=== PATIENT | female | born 1990 | race Caucasian/White ===

== ENCOUNTER 2016-09-12 17:48 | Emergency (ER) | payer OTHER ==
[~2016-09-12] VITALS: Ht 172.7 cm; Wt 66.2 kg
[2016-09-12] MEDS ORDERED: ONDANSETRON PF 4 MG/2 ML VIAL. IV ONE (19:00)
[2016-09-12] MEDS ORDERED: IV NORMAL SALINE 1000ML BAG 1,000 ML IV SCH (19:00)
[2016-09-12 19:29] LABS: BASO # 0.1 x10^3/uL (0.0-0.2); BASO % 1 % (0-3); EOS % 1 % (0-3); HEMATOCRIT 42.6 % (36.0-47.0); HEMOGLOBIN 14.3 g/dL (12.0-15.5); LYMPH # 2.1 x10^3/uL (1.0-4.8); LYMPH % 28 % (24-48); MEAN CORPUSCULAR HEMOGLOBIN 30 pg (25-35); MEAN CORPUSCULAR HGB CONC 34 g/dL (31-37); MEAN CORPUSCULAR VOLUME 88 fL (79-100); MONO % 9 % (0-9); NEUT % 61 % (31-73); PLATELET COUNT 238 x10^3/uL (140-400); RED BLOOD COUNT 4.81 x10^6/uL (3.50-5.40); RED CELL DISTRIBUTION WIDTH 12.7 % (11.5-14.5); WHITE BLOOD COUNT 7.5 x10^3/uL (4.0-11.0)
[2016-09-12 19:39] LABS: CALCIUM 9.1 mg/dL (8.5-10.1); CREATININE 0.7 mg/dL (0.6-1.0); GFR 103.7; POTASSIUM 3.9 mmol/L (3.5-5.1)
[2016-09-12 19:40] VITALS: BP 114/80
[2016-09-12 19:45] LABS: ALBUMIN 3.7 g/dL (3.4-5.0); ALBUMIN/GLOBULIN RATIO 0.9 (1.0-1.7); TOTAL BILIRUBIN 0.2 mg/dL (0.2-1.0); TOTAL PROTEIN 7.8 g/dL (6.4-8.2)
[2016-09-12] MEDS ORDERED: IOHEXOL 300 MG/ML 75 ML VIAL IV ONE (19:45)
[2016-09-12 19:51] LABS: NEG OBC FOB NEG; POS OBC FOB POS
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
[2016-09-12] MEDS ORDERED: MORPHINE SULFATE 2 MG/ML DISP.SYRIN. IV ONE (20:30)
[2016-09-12 20:31] LABS: BILIRUBIN,URINE NEGATIVE (NEG); GLUCOSE,URINE NEGATIVE (NEG); NITRITE,URINE NEGATIVE (NEG); PROTEIN,URINE NEGATIVE (NEG-TRACE); UROBILINOGEN,URINE 0.2 mg/dL (0.2 mg/dL)
[2016-09-12 20:42] LABS: BACTERIA,URINE 0 /HPF (0-FEW); RBC,URINE >40 /HPF (0-2); SQUAMOUS EPITHELIAL CELL,UR FEW /LPF; WBC,URINE OCC /HPF (0-4)
--- NOTE | 2016-09-12 20:42 | RAD ---
CT abdomen and pelvis with contrast Indication: Rectal bleeding and abdominal cramping. Axial imaging through the abdomen and pelvis was performed after the administration of intravenous contrast. The lung bases are clear. The liver and gallbladder are unremarkable. The pancreas and spleen are unremarkable. No adrenal mass is detected. The kidneys are unremarkable. The small and large bowel loops are non dilated. There is no ascites. No free air is seen. The bladder is decompressed. The uterus is unremarkable. No inflammatory process is identified. Impression: No acute features detected. Electronically signed by: Landon Carrera MD (Sep 12, 2016 20:41:24)
[2016-09-12] MEDS ORDERED: ONDA4TAB10 SL (21:00)
== END 2016-09-12 21:10 | disposition home or self-care (01) ==
LOC: ER 17:48
DX: K62.5 Hemorrhage of anus and rectum (principal); R10.33 Periumbilical pain; R10.13 Epigastric pain; K64.4 Residual hemorrhoidal skin tags; F41.9 Anxiety disorder, unspecified; F32.9 Major depressive disorder, single episode, unspecified; G89.29 Other chronic pain; I49.5 Sick sinus syndrome; Z88.8 Allergy status to other drugs, medicaments and biological substances
CPT/HCPCS: 36415; 74177; 80053; 81001; 81025; 82274; 83690; 85027; 96361; 96374; 96375; 99285; J2270; J2405; J7030; Q9967

== ENCOUNTER 2016-11-29 03:52 | Emergency (ER) | payer OTHER ==
[~2016-11-29] VITALS: Ht 167.6 cm; Wt 66.2 kg
[~2016-11-29 03:52] MED LIST: ONDA4TAB10 SL
[2016-11-29 04:28] LABS: BASO # 0.1 x10^3/uL (0.0-0.2); BASO % 1 % (0-3); EOS % 2 % (0-3); HEMATOCRIT 44.3 % (36.0-47.0); HEMOGLOBIN 15.2 g/dL (12.0-15.5); LYMPH # 4.2 x10^3/uL (1.0-4.8); LYMPH % 41 % (24-48); MEAN CORPUSCULAR HEMOGLOBIN 30 pg (25-35); MEAN CORPUSCULAR HGB CONC 34 g/dL (31-37); MEAN CORPUSCULAR VOLUME 87 fL (79-100); MONO % 8 % (0-9); NEUT % 49 % (31-73); PLATELET COUNT 278 x10^3/uL (140-400); RED BLOOD COUNT 5.08 x10^6/uL (3.50-5.40); RED CELL DISTRIBUTION WIDTH 12.8 % (11.5-14.5); WHITE BLOOD COUNT 10.2 x10^3/uL (4.0-11.0)
[2016-11-29] MEDS ORDERED: CONTRAST GIVEN MC PRN (04:30)
[2016-11-29 04:31] LABS: POTASSIUM ISTAT 3.3 mmol/L (3.5-5.0)
[2016-11-29 04:40] LABS: PROTHROMBIN TIME PATIENT 12.2 SEC (11.7-14.0)
[2016-11-29 04:43] LABS: CALCIUM 8.9 mg/dL (8.5-10.1); CREATININE 0.8 mg/dL (0.6-1.0); GFR 88.1; POTASSIUM 3.3 mmol/L (3.5-5.1)
[2016-11-29 04:50] LABS: ALBUMIN 3.6 g/dL (3.4-5.0); ALBUMIN/GLOBULIN RATIO 0.8 (1.0-1.7); TOTAL BILIRUBIN 0.4 mg/dL (0.2-1.0)
[2016-11-29] MEDS ORDERED: HYDROmorphone 2 MG/ML VIAL IV ONE (05:00)
[2016-11-29] MEDS ORDERED: IOHEXOL 300 MG/ML 75 ML VIAL IV ONE (05:00)
[2016-11-29] MEDS ORDERED: IV NORMAL SALINE 1000ML BAG 1,000 ML IV ONE (05:00)
[2016-11-29] MEDS ORDERED: ONDANSETRON PF 4 MG/2 ML VIAL. IV ONE (05:00)
--- NOTE | 2016-11-29 05:42 | RAD ---
INDICATION: Chest pain. COMPARISON: None TECHNIQUE: Axial CT images obtained through the chest. Intravenous contrast was utilized. 3D images processed per protocol. One or more of the following individualized dose reduction techniques were utilized for this examination: 1. Automated exposure control; 2. Adjustment of the mA and/or kV according to patient size; 3. Use of iterative reconstruction technique. FINDINGS: No focal airspace consolidation. No pneumothorax. No pulmonary edema. Thoracic aorta not grossly aneurysmal. No gross osseous destructive lesion. No central pulmonary embolus. The ascending thoracic aorta is largely obscured by motion. 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 IMPRESSION: No focal airspace consolidation, pneumothorax or pulmonary edema. No central pulmonary embolus. Electronically signed by: Adelso Chanel (November 29, 2016 05:41:14)
[2016-11-29] MEDS ORDERED: HYDR-971 PO (06:03)
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
--- NOTE | 2016-11-29 06:22 | EKG ---
[facility] [address] [place] [address] Test Date: 2016-11-29 Test Time: 03:57:59 Pat Name: ELROY [place] Department: Room: Gender: F [employer] Teacher: : 1990 Requested By: TALA BEDOYA Order Number: [id number] Reading MD: Robbin Sotelo Measurements Intervals [place] Rate: 91 P: 48 [place]: 120 QRS: 69 QRSD: 76 T: 40 QT: 340 QTc: 425 Interpretive Statements SINUS RHYTHM Electronically Signed On 11-29-2016 9:12:34 CDT by Robbin Sotelo
[2016-11-29 06:29] VITALS: BP 101/63
== END 2016-11-29 06:52 | disposition home or self-care (01) ==
LOC: ER 03:52
DX: R07.89 Other chest pain (principal); F41.0 Panic disorder [episodic paroxysmal anxiety]; R05 Cough; F41.9 Anxiety disorder, unspecified; G89.29 Other chronic pain; M32.9 Systemic lupus erythematosus, unspecified; F32.9 Major depressive disorder, single episode, unspecified; Z88.8 Allergy status to other drugs, medicaments and biological substances
CPT/HCPCS: 36415; 71275; 80047; 80053; 83690; 84484; 85027; 85379; 85610; 93005; 96361; 96374; 96375; 99285; J1170; J2405; J7030; Q9967

== ENCOUNTER 2017-02-06 17:32 | Emergency (ER) | payer OTHER ==
[~2017-02-06] VITALS: Ht 175.3 cm; Wt 65.3 kg
[~2017-02-06 17:32] MED LIST changes: +HYDR-971 PO
--- NOTE | 2017-02-06 18:26 | PHYS DOC ---
Past Medical History Past Medical History: Anxiety, Depression, Other Additional Past Medical Histor: LUPUS, POSTURAL ORTHO TACHY, PTSD, CHRONIC UTI , OVARIAN CYSTS Past Surgical History: No Surgical History Alcohol Use: None Drug Use: None Adult General Chief Complaint Chief Complaint: WOUND CHECK [facility] HPI Patient is a 26 year old female presents emergency department stating that she had a burn to her right forearm. She states that she has a history of pots and lupus. She does expect to have delayed healing. She states she's been cleaning the site with hydrogen peroxide. She states today she became nauseated and just not feeling really well. She denies any fever, chills she does state she's nauseated however has not vomited. Patient denies any drainage or discharge coming from the site. She states that it feels warm and is swollen. Review of Systems Review of Systems Constitutional: Denies fever or chills [] Eyes: Denies change in visual acuity, redness, or eye pain [] HENT: Denies nasal congestion or sore throat [] Respiratory: Denies cough or shortness of breath [] Cardiovascular: No additional information not addressed in HPI [] GI: Denies abdominal pain, nausea, bloody stools or diarrhea. Complaint of nausea : Denies dysuria or hematuria [] Musculoskeletal: Denies back pain or joint pain [] Integument: Denies rash or skin lesions. Abrasion right forearm Neurologic: Denies headache, focal weakness or sensory changes [] Endocrine: Denies polyuria or polydipsia [] Current Medications Current Medications Current Medications Medications (Trade) Dose Ordered Sig/[facility] Start Time Stop Time Status Last Admin Dose Admin Acetaminophen (Tylenol) 650 mg 1X ONCE 02/06/17 19:30 02/06/17 19:31 DC 02/06/17 19:16 650 MG Cyclobenzaprine HCl (Flexeril) 10 mg 1X ONCE 02/06/17 20:00 02/06/17 20:01 DC 02/06/17 19:59 10 MG Ondansetron HCl (Zofran Odt) 4 mg 1X ONCE 02/06/17 18:45 02/06/17 18:46 DC 02/06/17 18:34 4 MG Allergies Allergies Allergies Coded Allergies Type Severity Reaction Last Updated Verified metoclopramide Allergy Intermediate Anxiety 09/12/16 Yes Corticosteroids (Glucocorticoids) Adverse Reaction Intermediate 11/29/16 Yes Physical Exam Physical Exam Constitutional: Well developed, well nourished, no acute distress, non-toxic appearance. [] HENT: Normocephalic, atraumatic, bilateral external ears normal, oropharynx moist, no oral exudates, nose normal. [] Eyes: PERRLA, EOMI, conjunctiva normal, no discharge. [] Neck: Normal range of motion, no tenderness, supple, no stridor. [] Cardiovascular:Heart rate regular rhythm, no murmur [] Lungs & Thorax: Bilateral breath sounds clear to auscultation [] Abdomen: Bowel sounds hypoactive, soft, no tenderness, no masses, no pulsatile masses. [] Skin: Warm, dry, no erythema, no rash. Patient with an abrasion noted to the right forearm the area does have redness noted around the area however no drainage or discharge noted eye do not appreciate any warmth noticed around the wound. Back: No tenderness Extremities: No tenderness, no cyanosis, no clubbing, ROM intact, no edema. [] Neurologic: Alert and oriented X 3, normal motor function, normal sensory function, no focal deficits noted. [] Psychologic: Affect normal, judgement normal, mood normal. [] Current Patient Data Vital Signs Vital Signs Date Time Temp Pulse Resp B/P (MAP) Pulse Ox O2 Delivery O2 Flow Rate FiO2 02/06/17 18:59 98.5 125 124/79 (94) 100 98.5 02/06/17 17:39 18 Room Air Lab Values Laboratory Tests Test 02/06/17 19:46 White Blood Count 11.1 x10^3/uL (4.0-11.0) H Red Blood Count 4.63 x10^6/uL (3.50-5.40) Hemoglobin 13.8 g/dL (12.0-15.5) Hematocrit 41.0 % (36.0-47.0) Mean Corpuscular Volume 89 fL (79-100) Mean Corpuscular Hemoglobin 30 pg (25-35) Mean Corpuscular Hemoglobin Concent 34 g/dL (31-37) Red Cell Distribution Width 12.9 % (11.5-14.5) Platelet Count 283 x10^3/uL (140-400) Neutrophils (%) (Auto) 59 % (31-73) Lymphocytes (%) (Auto) 32 % (24-48) Monocytes (%) (Auto) 8 % (0-9) Eosinophils (%) (Auto) 1 % (0-3) Basophils (%) (Auto) 1 % (0-3) Neutrophils # (Auto) 6.5 x10^3uL (1.8-7.7) Lymphocytes # (Auto) 3.6 x10^3/uL (1.0-4.8) Monocytes # (Auto) 0.9 x10^3/uL (0.0-1.1) Eosinophils # (Auto) 0.1 x10^3/uL (0.0-0.7) Basophils # (Auto) 0.1 x10^3/uL (0.0-0.2) Laboratory Tests 02/06/17 19:46 EKG EKG [] Radiology/Procedures Radiology/Procedures [] Course & Med Decision Making Course & Med Decision Making Pertinent Labs and Imaging studies reviewed. (See chart for details) Patient will be provided with Zofran here in the emergency department. She'll be provided with by mouth challenge. Patient had complained that she was having muscle spasms all over. She states that she has Flexeril at home in which she can take at home. She states that she really just does not feel right and feels as though she is not inability to tolerate going home. Spoke with patient regards to admission here into the hospital for observation status. Patient was provided with a Flexeril here in the emergency department. She was reevaluated in which she states she feels much better and feels that she can go home and does not want to be admitted into the hospital. Patient's CBC with a slightly elevated white count. She'll be provided with Keflex at discharge for potential infection of the wound. Patient agrees with discharge instructions treatment regimens and follow-up recommendations. Signs symptoms to return back to emergency department as been provided. [] Dragon Disclaimer Dragon Disclaimer This electronic medical record was generated, in whole or in part, using a voice recognition dictation system. Departure Departure Impression: Primary Impression: Abrasion of right forearm Disposition: HOME, SELF-CARE Condition: STABLE Referrals: GEORGE COHN DO (PCP) Patient Instructions: Abrasion, [id number] Additional Instructions: Activity as tolerated. Medication as prescribed. Tylenol or ibuprofen for fever chills or generalized body aches and discomfort. Continue to take her Flexeril which she state at home for your muscle spasms and discomfort. Drink plenty of fluids. Follow-up to primary care physician in the next 3-5 days. Scripts Cephalexin (KEFLEX) 500 Mg Capsule 1 CAP PO BID, #20 CAP Prov: ALFREDO MENDEZ APRN 02/06/17 ALFREDO MENDEZ APRN Feb 06, 2017 18:26
[2017-02-06] MEDS ORDERED: ONDANSETRON ODT 4 MG TAB.RAPDIS. PO ONE (18:45)
[2017-02-06 18:59] VITALS: BP 124/79
[2017-02-06] MEDS ORDERED: ACETAMINOPHEN 325 MG TABLET. PO ONE (19:30)
[2017-02-06] MEDS ORDERED: CYCLOBENZAPRINE 10 MG TABLET. PO ONE (20:00)
[2017-02-06 20:04] LABS: BASO # 0.1 x10^3/uL (0.0-0.2); BASO % 1 % (0-3); EOS % 1 % (0-3); HEMOGLOBIN 13.8 g/dL (12.0-15.5); LYMPH # 3.6 x10^3/uL (1.0-4.8); LYMPH % 32 % (24-48); MEAN CORPUSCULAR HEMOGLOBIN 30 pg (25-35); MEAN CORPUSCULAR HGB CONC 34 g/dL (31-37); MEAN CORPUSCULAR VOLUME 89 fL (79-100); MONO % 8 % (0-9); NEUT % 59 % (31-73); PLATELET COUNT 283 x10^3/uL (140-400); RED BLOOD COUNT 4.63 x10^6/uL (3.50-5.40); RED CELL DISTRIBUTION WIDTH 12.9 % (11.5-14.5); WHITE BLOOD COUNT 11.1 x10^3/uL (4.0-11.0)
[2017-02-06] MEDS ORDERED: CEPH-264 PO (20:17)
[2017-02-06 20:18] LABS: CALCIUM 8.7 mg/dL (8.5-10.1); CREATININE 0.8 mg/dL (0.6-1.0); GFR 88.1
[2017-02-06 20:24] LABS: ALBUMIN 3.8 g/dL (3.4-5.0); TOTAL BILIRUBIN 0.2 mg/dL (0.2-1.0); TOTAL PROTEIN 7.6 g/dL (6.4-8.2)
== END 2017-02-06 20:51 | disposition home or self-care (01) ==
LOC: ER 17:32
DX: S50.811A Abrasion of right forearm, initial encounter (principal); L93.0 Discoid lupus erythematosus; Z87.440 Personal history of urinary (tract) infections; N83.209 Unspecified ovarian cyst, unspecified side; X58.XXXA Exposure to other specified factors, initial encounter; Y93.89 Activity, other specified; Y99.8 Other external cause status; Y92.89 Other specified places as the place of occurrence of the external cause
CPT/HCPCS: 36415; 80053; 85027; 99284; Q0162

== ENCOUNTER 2017-03-14 17:31 | Emergency (ER) | payer OTHER ==
[~2017-03-14] VITALS: Ht 175.3 cm; Wt 63.5 kg
[~2017-03-14 17:31] MED LIST changes: +CEPH-264 PO
[2017-03-14 17:35] VITALS: BP 111/74
--- NOTE | 2017-03-14 17:44 | PHYS DOC ---
Past Medical History Past Medical History: Anxiety, Depression, Other Additional Past Medical Histor: LUPUS, POSTURAL ORTHO TACHY, PTSD, CHRONIC UTI , OVARIAN CYSTS Past Surgical History: No Surgical History Alcohol Use: None Drug Use: None Adult General Chief Complaint Chief Complaint: TOE PROBLEM HPI HPI Patient is a 26 year old female presents to the emergency department with concerns about her toenails. She states that they have been flaking off . She has not,, no pain, no redness or swelling. Review of Systems Review of Systems Constitutional: Denies fever or chills [] Eyes: Denies change in visual acuity, redness, or eye pain [] HENT: Denies nasal congestion or sore throat [] Respiratory: Denies cough or shortness of breath [] Cardiovascular: No additional information not addressed in HPI [] GI: Denies abdominal pain, nausea, vomiting, bloody stools or diarrhea [] : Denies dysuria or hematuria [] Musculoskeletal: Denies back pain or joint pain [] Integument: Denies rash or skin lesions [] Neurologic: Denies headache, focal weakness or sensory changes [] Endocrine: Denies polyuria or polydipsia [] Allergies Allergies Allergies Coded Allergies Type Severity Reaction Last Updated Verified metoclopramide Allergy Intermediate Anxiety 09/12/16 Yes Corticosteroids (Glucocorticoids) Adverse Reaction Intermediate 11/29/16 Yes Physical Exam Physical Exam Constitutional: Well developed, well nourished, no acute distress, non-toxic appearance. [] HENT: Normocephalic, atraumatic, bilateral external ears normal, oropharynx moist, no oral exudates, nose normal. [] Eyes: PERRLA, EOMI, conjunctiva normal, no discharge. [] Neck: Normal range of motion, no tenderness, supple, no stridor. [] Cardiovascular:Heart rate regular rhythm, no murmur [] Lungs & Thorax: Bilateral breath sounds clear to auscultation [] Abdomen: Bowel sounds normal, soft, no tenderness, no masses, no pulsatile masses. [] Skin: Warm, dry, no erythema, no rash, nail exam unremarkable [] Back: No tenderness, no CVA tenderness. [] Extremities: No tenderness, no cyanosis, no clubbing, ROM intact, no edema. [] Neurologic: Alert and oriented X 3, normal motor function, normal sensory function, no focal deficits noted. [] Psychologic: Affect normal, judgement normal, mood normal. [] EKG EKG [] Radiology/Procedures Radiology/Procedures [] Course & Med Decision Making Course & Med Decision Making Pertinent Labs and Imaging studies reviewed. (See chart for details) [] Dragon Disclaimer Dragon Disclaimer This electronic medical record was generated, in whole or in part, using a voice recognition dictation system. Departure Departure Impression: Primary Impression: Feared complaint without diagnosis Disposition: HOME, SELF-CARE Condition: STABLE Referrals: GEORGE COHN DO (PCP) LIS PEARCE APRN Mar 14, 2017 17:44
== END 2017-03-14 17:55 | disposition home or self-care (01) ==
LOC: ER 17:31
DX: Z71.1 Person with feared health complaint in whom no diagnosis is made (principal); F41.9 Anxiety disorder, unspecified; F32.9 Major depressive disorder, single episode, unspecified; L93.0 Discoid lupus erythematosus; F43.10 Post-traumatic stress disorder, unspecified; Z88.8 Allergy status to other drugs, medicaments and biological substances
CPT/HCPCS: 99281

== ENCOUNTER 2017-06-15 15:26 | Emergency (ER) | payer OTHER ==
[~2017-06-15] VITALS: Ht 175.3 cm; Wt 65.8 kg
--- NOTE | 2017-06-15 16:34 | PHYS DOC ---
Past Medical History Past Medical History: Anxiety, Depression, Other Additional Past Medical Histor: LUPUS, POSTURAL ORTHO TACHY, PTSD, CHRONIC UTI , OVARIAN CYSTS Past Surgical History: No Surgical History Alcohol Use: None Drug Use: None Adult General Chief Complaint Chief Complaint: HIP PAIN HPI HPI Patient is a 26 year old female with a history of anxiety and depression who presents today complaining of a possible left hip dislocation. Patient states she has a connective tissue disorder that results to frequent hip dislocations. Patient states today she felt her left hip was out and she put it back in but she doesn't feel it's in place. Review of Systems Review of Systems Constitutional: Denies fever or chills [] Musculoskeletal: Left hip possible dislocation Integument: Denies rash or skin lesions [] Neurologic: Denies headache, focal weakness or sensory changes [] All other systems were reviewed and found to be within normal limits, except as documented in this note. Allergies Allergies Allergies Coded Allergies Type Severity Reaction Last Updated Verified metoclopramide Allergy Intermediate Anxiety 09/12/16 Yes Corticosteroids (Glucocorticoids) Adverse Reaction Intermediate 11/29/16 Yes Physical Exam Physical Exam Constitutional: Well developed, well nourished, no acute distress, non-toxic appearance. [] Skin: Warm, dry, no erythema, no rash. [] Back: No tenderness, no CVA tenderness. [] Extremities: Bilateral lower extremities with no obvious deformity. No tenderness on palpation of the left hip. Adequate internal rotation and external rotation of the left hip. Adequate flexion and extension of the left lower extremity. +2 bilateral pedal pulses. Cap refill less than 2 seconds bilateral lower extremities. Neurologic: Alert and oriented X 3, normal motor function, normal sensory function, no focal deficits noted. [] Psychologic: Affect normal, judgement normal, mood normal. [] Current Patient Data Vital Signs Vital Signs Date Time Temp Pulse Resp B/P (MAP) Pulse Ox O2 Delivery O2 Flow Rate FiO2 06/15/17 16:20 97.7 77 16 98 Room Air 97.7 EKG EKG [] Radiology/Procedures Radiology/Procedures []PROCEDURE: HIP LEFT 2V WITH PELVIS Pelvis with left hip, 2 views, 06/15/2017: History: Hip pain, previous dislocation No fracture or dislocation is identified. The hip joint spaces are well-maintained. The periarticular soft tissues are unremarkable. IMPRESSION: No significant abnormality is detected. DICTATED and SIGNED BY: KIM MICHAUD MD DATE: 06/15/17 9803 CC: ANDREA CERVANTES APRN; NON,STAFF; GEORGE COHN DO ~ Course & Med Decision Making Course & Med Decision Making Pertinent Labs and Imaging studies reviewed. (See chart for details) Patient is in the ED with concern of left hip dislocation. When radiology went to do patient's x-rays, she stated it started her right hip that is hurting. Right hip appears normal on physical exam. Right hip x-rays including pelvic are negative for any acute findings. Patient will be discharged with instructions to follow-up with the PCP. Ice elevation recommended. Dragon Disclaimer Dragon Disclaimer This electronic medical record was generated, in whole or in part, using a voice recognition dictation system. Departure Departure Impression: Primary Impression: Hip pain, right Disposition: 01 HOME, SELF-CARE Condition: STABLE Referrals: GEORGE COHN DO (PCP) follow up with your doctor in one week Patient Instructions: Hip Pain Additional Instructions: You were seen with hip pain. Your x-rays are negative for any acute findings. Follow-up with your doctor in the next 1 week. ANDREA CERVANTES APRN Jun 15, 2017 16:34
--- NOTE | 2017-06-15 17:10 | RAD ---
Pelvis with left hip, 2 views, 06/15/2017: History: Hip pain, previous dislocation No fracture or dislocation is identified. The hip joint spaces are well-maintained. The periarticular soft tissues are unremarkable. IMPRESSION: No significant abnormality is detected.
[2017-06-15 17:15] VITALS: BP 101/62
== END 2017-06-15 17:50 | disposition home or self-care (01) ==
LOC: ER 15:26
DX: M25.552 Pain in left hip (principal); F32.9 Major depressive disorder, single episode, unspecified; F43.10 Post-traumatic stress disorder, unspecified; Z87.440 Personal history of urinary (tract) infections; Z88.8 Allergy status to other drugs, medicaments and biological substances
CPT/HCPCS: 73502; 99284

== ENCOUNTER 2018-03-26 16:33 | Emergency (ER) | payer OTHER ==
[~2018-03-26] VITALS: Ht 175.3 cm; Wt 60.4 kg
[~2018-03-26 16:33] MED LIST changes: +MELO7.5T29 PO; +NORE-68 PO; +Pantoprazole PO; +SERT100T PO; +TIZA4TAB PO; +TOPI50TA8 PO
[2018-03-26 17:50] VITALS: BP 106/73
--- NOTE | 2018-03-26 18:42 | PHYS DOC ---
Past Medical History Past Medical History: Anxiety, Depression, Ovarian Cyst, P.U.D., UTI, Other Additional Past Medical Histor: LUPUS, MULT CHEMICAL RXN SYN, PTSD, PED ELIM SYN,mast cell activ synd Past Surgical History: No Surgical History Additional Past Surgical Histo: Dental Alcohol Use: Rarely Drug Use: None Adult General Chief Complaint Chief Complaint: FACE PROBLEM HPI HPI Patient is a 27 year old female who presents with left sided jaw pain and a sensation like she has a malocclusion. She states that she has a chronic history of TMJ dysfunction and was having some left-sided jaw pain today at work and went to go see the practitioner at [facility] and she thought potentially patient had a subluxation. Patient states that she is able to open her mouth and close her mouth as she normally does but she has a subtle sensation that she has a malocclusion on her left upper and lower molar/premolar. Review of Systems Review of Systems Constitutional: Denies fever or chills Eyes: Denies change in visual acuity HENT: Denies nasal congestion or sore throat, toothache, fb sensation Respiratory: Denies cough or shortness of breath Cardiovascular: No additional information not addressed in HPI GI: Denies abdominal pain, nausea, vomiting, bloody stools or diarrhea : Denies dysuria or hematuria Integument: Denies rash or skin lesions Neurologic: Denies headache, focal weakness or sensory changes Endocrine: Denies polyuria or polydipsia All other systems were reviewed and found to be within normal limits, except as documented in this note. Family History Family History noncontributory Allergies Allergies Allergies Coded Allergies Type Severity Reaction Last Updated Verified metoclopramide Allergy Intermediate Anxiety 03/26/18 Yes Corticosteroids (Glucocorticoids) Adverse Reaction Intermediate 03/26/18 Yes Physical Exam Physical Exam GENERAL: Awake, alert, well appearing, nontoxic HEAD/NECK/EYES: Normocephalic, Neck supple, PERRL, no trismus, no drooling, no stridor, no wheezing, mild tenderness to palpation over the left temporomandibular joint, unable to visualize malocclusion and any malocclusion is subjective, there is a subtle deviation when she opens her mouth consistent with chronic temporomandibular joint dysfunction, I do not appreciate any dislocation ENT Airway patent, mucous membranes moist RESP: Nontachypneic, no respiratory distress, normal breath sounds bilaterally CV: Regular rhythm, normal perfusion ABD/GI: Soft, non-tender, no guarding, no rebound BACK: Inspection NL EXT: Neurovascularly intact, no deformities SKIN: Warm, dry NEURO: Oriented X3, normal speech, no motor deficits, no sensory deficits, CN II - XII intact PSYCH: Cooperative, appropriate affect Current Patient Data Vital Signs Vital Signs Date Time Temp Pulse Resp B/P (MAP) Pulse Ox O2 Delivery O2 Flow Rate FiO2 03/26/18 17:50 97.8 86 18 106/73 (84) 97 Room Air 97.8 EKG EKG [] Radiology/Procedures Radiology/Procedures [] Course & Med Decision Making Course & Med Decision Making Pertinent Labs and Imaging studies reviewed. (See chart for details) 6:53 PM. Patient wishes to leave without getting jaw x-rays. Dragon Disclaimer Dragon Disclaimer This electronic medical record was generated, in whole or in part, using a voice recognition dictation system. Departure Departure Impression: Primary Impression: TMJ pain dysfunction syndrome Referrals: UNKNOWN PCP NAME (PCP) EMMA MATTA DO Mar 26, 2018 18:42
== END 2018-03-26 18:56 | disposition home or self-care (01) ==
LOC: ER 16:33
DX: M26.602 Left temporomandibular joint disorder, unspecified (principal); F41.9 Anxiety disorder, unspecified; F32.9 Major depressive disorder, single episode, unspecified; Z87.440 Personal history of urinary (tract) infections; Z88.8 Allergy status to other drugs, medicaments and biological substances
CPT/HCPCS: 99281